=== PATIENT | female | born 1955 | race Caucasian/White ===

== ENCOUNTER 2017-03-13 00:15 | Emergency (ER) | payer OTHER ==
[2017-03-13 01:03] VITALS: BP 148/77
--- NOTE | 2017-03-13 01:55 | XRay Report ---
FINAL REPORT EXAM: XR KNEE 1-2V RT HISTORY: knee pain COMPARISON: None available. FINDINGS: Two views of right knee obtained. Small suprapatellar effusion. Mild patellar osteophyte narrowing the patellofemoral joint space. Medial lateral joint space compartments are preserved. No acute fracture dislocation. IMPRESSION: No acute bony findings. Mild degenerative changes the patellofemoral joint space with small suprapatellar effusion.
[2017-03-13 02:04] LABS: Hematocrit 37.3 % (30.3-42.9); Hemoglobin 12.4 gm/dl (10.1-14.3); Mean Corpuscular HGB Conc 33 % (30-34); Mean Corpuscular Hemoglobin 27 pg (28-32); Mean Corpuscular Volume 81 fl (79-97); Platelet Count 229 K/mm3 (140-440); Red Blood Count 4.63 M/mm3 (3.65-5.03); Red Cell Distribution Width 14.6 % (13.2-15.2); White Blood Count 8.3 K/mm3 (4.5-11.0)
[2017-03-13 02:15] LABS: Anion Gap 16 mmol/L; BUN/Creatinine Ratio 13; Blood Urea Nitrogen 12 mg/dL (7-17); Calcium 9.2 mg/dL (8.4-10.2); Carbon Dioxide 24 mmol/L (22-30); Glucose 178 mg/dL (65-100); Potassium 4.3 mmol/L (3.6-5.0); Sodium 136 mmol/L (137-145)
[2017-03-13 02:25] LABS: INR 0.83 (0.87-1.13)
[2017-03-13 02:26] LABS: Partial Thromboplastin Time 26.7 Sec. (24.2-36.6)
[2017-03-13 04:01] LABS: INR 0.86 (0.87-1.13)
[2017-03-13 04:02] LABS: Partial Thromboplastin Time 27.6 Sec. (24.2-36.6)
== END 2017-03-13 02:21 | disposition left against medical advice (07) ==
LOC: ED 00:15
DX: M25.561 Pain in right knee (principal); M79.89 Other specified soft tissue disorders; Z53.21 Procedure and treatment not carried out due to patient leaving prior to being seen by health care provider
CPT/HCPCS: 36415; 80048; 85027; 85379; 85610; 85730